=== PATIENT | male | born 2005 | race Two or more races ===

== ENCOUNTER 2024-09-03 20:36 | Emergency (ER) | payer OTHER, SELFPAY ==
[2024-09-03 20:52] VITALS: BP 139/83; PULSE 109; RESP 16; TEMP 36.7; O2SAT 95
--- NOTE | 2024-09-03 21:00 | DI.RAD_ITS ---
Exam(s) XR ANKLE RT COMPLETE EXAM: XR ANKLE RT COMPLETE CLINICAL HISTORY: right ankle. TECHNIQUE: 2D digital imaging was performed. COMPARISON: No exams were available for comparison FINDINGS: 3 views There is lateral soft tissue swelling. No malleolar fractures nor widening the ankle mortise. Howev er, on the lateral aspect of the ankle there is a E 7 x 4 mm osteophytic density off the lateral aspe ct of the mid talus. Difficult to determine if this is an accessory ossicle or avulsion fracture fra gment which would be at the insertional aspect of the talofibular ligament. IMPRESSION: Avulsion fragment off the lateral aspect of the talus versus accessory ossicle. There is overlying s oft tissue swelling. Orthopedic follow-up recommended. First read by [facility] Final report called by myself to ER physician 09/04/2024 DATA REPOSITORY: RADIATION DOSE DELIVERED:
[2024-09-03] MEDS: Ibuprofen 600 MG TAB PO (21:11)
--- NOTE | 2024-09-03 22:07 | DI.VRAD_ITS ---
PROCEDURE INFORMATION: Exam: XR Right Ankle Exam date and time: 09/03/2024 9:36 PM Age: 19 years old Clinical indication: Other: Right ankle pain /fall TECHNIQUE: Imaging protocol: Radiologic exam of the right ankle. Views: 3 or more views. COMPARISON: No relevant prior studies available. FINDINGS: Bones/joints: No fracture. No dislocation. Soft tissues: Moderate to severe soft tissue swelling. No gas or foreign body. IMPRESSION: 1. No fracture or dislocation. 2. Soft tissue swelling. Dictated and Authenticated by: Raúl Navas MD. Orderin Ghassan Mesa MD
--- NOTE | 2024-09-03 23:03 | ED.GENADUL_ITS ---
Discharge Plan Disposition Patient Disposition: Home Condition: Stable Discharge Details Clinical Impression: Ankle sprain Primary Care Provider: None,None ED Provider: Bonita Ferrell Home Meds and New Rx's Prescriptions: Continued omeprazole 20 mg capsule,delayed release(DR/EC) 20 mg PO DAILY Qty: 30 1RF sucralfate [Carafate] 1 gram tablet 1 g PO TID Qty: 21 0RF Discharge Instructions Instructions: Ankle Sprain ED Additional Instructions: The boot for support for the next week weightbearing as tolerated, Motrin and Tylenol as needed for pain, ice, rest Please return or be reevaluated should you have pain lasting longer than 1 week you may need orthopedic referral Discharge Data Discharge Date/Time-TO BE ENTERED AT DEPARTURE: 09/03/24 22:56 HPI General Date/Time Provider Initiated Documentation: 09/03/24 20:38 . HPI Narrative: The patient is a 19-year-old male who presents with a twisting injury to his right ankle earlier today. He has had pain with ambulating since that time. He has been walking on his ankle all day, but it hurts. He states he has had numerous injuries to this ankle as he used to play sports. He reports no additional prior injuries. Related Data Home Medications ?Medication ?Instructions ?Recorded ?Confirmed omeprazole 20 mg capsule,delayed 20 mg PO DAILY #30 caps 12/03/23 09/03/24 release sucralfate 1 gram tablet (Carafate) 1 g PO TID #21 tabs 12/03/23 09/03/24 Previous Rx's ?Medication ?Instructions ?Recorded omeprazole 20 mg capsule,delayed 20 mg PO DAILY #30 caps 12/03/23 release sucralfate 1 gram tablet (Carafate) 1 g PO TID #21 tabs 12/03/23 Allergies Allergy/AdvReac Type Severity Reaction Status Date / Time No Known Allergies Allergy Verified 09/03/24 20:58 General Stated Complaint: Orthopedic JOSE MIGUEL: 4 Exam Narrative Exam Narrative: General Appearance: Normal. Vital signs: Within normal limits. HEENT: Within normal limits. Respiratory: Within normal limits. Cardiovascular: Gastrointestinal: Genitourinary: Lymphatic: Back, Musculoskeletal: Extremities: The right ankle shows predominantly lateral tenderness, no tenderness over the foot, no tenderness to the knee. No obvious laxity, neurovascularly intact. Good capillary refill. Skin: Warm and dry, no rash. Neurological: Normal. Psychiatric: Other observations: Course Vital Signs Vital signs: Vital Signs Temperature 36.7 C 09/03/24 20:52 Pulse 109 H 09/03/24 20:52 Respiratory Rate 16 09/03/24 20:52 Blood Pressure 139/83 09/03/24 20:52 Pulse Oximetry 95 09/03/24 20:52 Temperature 36.7 C 09/03/24 20:52 Temperature Source Oral 09/03/24 20:52 Pulse 109 H 09/03/24 20:52 Respiratory Rate 16 09/03/24 20:52 Blood Pressure 139/83 09/03/24 20:52 Blood Pressure Position Sitting 09/03/24 20:52 Pulse Oximetry 95 09/03/24 20:52 Oxygen Delivery Method Room Air 09/03/24 20:52 Oxygen Flow Rate 0 09/03/24 20:52 Pain Level 6 09/03/24 20:52 Medical Decision Making Imaging X-ray of the right ankle does not show evidence of acute abnormality. Initial Assessment: 19-year-old male with a twisting injury to the right ankle earlier today, experiencing pain with ambulating since then. Examination revealed predominantly lateral tenderness, no tenderness over the foot or knee, no obvious laxity, and intact neurovascular status. X-ray did not show any acute abnormalities. ED Course: - X-ray reviewed, no acute abnormalities. - Patient placed in a boot for comfort. - Return precautions reviewed and patient expressed understanding. On reassessment, patient has a possible ligamentous injury or an avulsion just distal to the lateral malleolus/talus, will refer to orthopedics, patient made aware Final Assessment: Twisting injury to the right ankle with lateral tenderness and no acute abnormalities on X-ray. Placed in a boot for comfort and provided return precautions. Clinical Impression: - Right ankle sprain. Disposition: - Follow-Up: Recheck in 1 week. Quality:SDOH Health Related Social Needs: No Data to Display PFSH All Active Problems (Updated 09/03/24 @ 22:27 by LORENA Gonzales) Ankle sprain (Acute) Viral upper respiratory illness (Acute) Social History Smoking/Tobacco Use Status: Current every day Tobacco Type: e-cigarettes Smoking risk assessment performed?: Yes Substance use type: marijuana PAWSS Have you Been Recently Intoxicated or Drunk Within the Last 30 days?: No Have you Ever Experienced Previous Episodes of Alcohol Withdrawal?: No Have you ever Experienced Withdrawal Seizures?: No Have you ever Experienced Delirium Tremens(DT)s?: No Have you ever undergone Alcohol Rehabilitation Treatment (i.e, inpt ot outpatient treatment programs)?: No Have you ever Experienced Blackouts?: No Have you ever Combined Alcohol with other Downers within the last 90 days?: No Have you ever Combined Alcohol with any other Substance of Abuse during the last 90 days?: No Positive Blood Alcohol level on Presentation? [PCS.BAL]: No Evidence of Increased Autonomic Activity (i.e. HR>120, tremor, sweating, agitation, nausea)?: No Result: 0
[2024-09-03 23:12] VITALS: BP 132/86; PULSE 100; RESP 16; TEMP 36.7; O2SAT 95
--- NOTE | 2024-09-04 14:19 | W.ED.FU ---
Date of service: 09/03/24 Follow Up Plan: Discussed xray findings with Dr Perry. Concern for possible avulsion fracture. patient sent home in boot. Will add ortho referral. Attempted to contact patient to update him on the plan of care, but his cell phone is not currently excepting phone calls. No answer with his next contact.
== END 2024-09-03 22:56 | disposition home or self-care (01) ==
PROVIDERS: Emergency Provider Physician Assistant
DX: S93.401A Sprain of unspecified ligament of right ankle, initial encounter (principal); X50.9XXA Other and unspecified overexertion or strenuous movements or postures, initial encounter
CPT/HCPCS: 99283; 73610